=== PATIENT | female | born 1985 | race Caucasian/White ===

== ENCOUNTER 2025-03-30 09:51 | Emergency (ER) | payer OTHER, SELFPAY ==
--- NOTE | 2025-03-30 09:55 | ED.EYEPROB ---
HPI - Eye Problem General Chief complaint: Eye Problems Stated complaint: Right Eye Problem Time Seen by Provider: 03/30/25 10:04 Source: patient and RN notes reviewed Mode of arrival: ambulatory Limitations: no limitations History of Present Illness HPI Narrative: 40-year-old female presents with concern for right eyelid redness and slight swelling. She reports that started yesterday. She denies drainage from the eye. Reports it's slightly itchy. She denies pain, eye pain, vision changes. She denies injury. She is getting at the end of the week and is concerned she could have an infection. chief complaint: other (eyelid redness) Related Data Home Medications ?Medication ?Instructions ?Recorded ?Confirmed ?Last Taken ?Type citalopram 10 mg tablet mg 03/30/25 Unknown History norgestimate 0.25 mg-ethinyl tablet 03/30/25 Unknown History estradiol 0.035 mg tablet (Sprintec (28)) Allergies Allergy/AdvReac Type Severity Reaction Status Date / Time No Known Allergies Allergy Verified 03/30/25 10:03 Review of Systems Review of Systems: CONSTITUTIONAL: Denies malaise, chills, sweats, or fever. EYES: Denies visual changes. Denies eye redness, irritation, discharge. ENT: Denies rhinorrhea, congestion, sinus pain, otalgia or sore throat. SKIN: Reports redness and swelling to the right upper lower eyelid NEUROLOGIC: Denies numbness, weakness, or headache. PSYCHIATRIC: Denies anxiety or depression. All systems reviewed & are unremarkable except as noted in HPI and below PMFSH Comments At time of signature, agree with nursing past medical, surgical, social and family history. There is no relevant family history pertinent to the presenting complaint Exam Narrative: GENERAL: Well-appearing, well-nourished, and in no acute distress. HEAD: Normocephalic, atraumatic. EYES: PERRLA, sclera clear, and EOMI. No nystagmus. Bilateral conjunctivae and sclera clear. Right upper eyelid slightly erythematous and very mildly edematous, lower eyelid erythematous with your Ghosh skin noted. Left Upper and lower eyelid unremarkable, no periorbital edema noted ENT: Nares clear, turbinates pink, no rhinorrhea or epistaxis. Mucous membranes moist. TM pearly johnson with sharp light reflex bilaterally; no tragal tenderness. NECK: Supple. CHEST: No respiratory distress. Speaks in full sentences. HEART: Regular rate and rhythm. SKIN: Warm, dry, no visible rash. NEURO: Alert and oriented x3. PSYCH: Normal mood and affect Course Course Emergency Course: Patient is aware of diagnosis, understands and agrees to treatment plan. Anticipatory guidance given. Patient agrees to follow-up as directed and is aware of reasons to seek care at the emergency department. Portions of this record may have been created with voice recognition software Level of Care: Express Care Visit Vital Signs Vital signs: Reviewed. MDM - Eye Problem MDM Narrative Medical decision making narrative: Consideration of the following conditions may be warranted for the presenting problem, they are not final diagnoses: Bacterial conjunctivitis, allergic conjunctivitis, viral conjunctivitis, foreign body, blepharitis, chalazion, hordeolum, corneal abrasion, preseptal cellulitis, orbital cellulitis. No evidence of proptosis, ophthalmoplegia, vision loss, pain with eye movement. Exam findings show no acute concerns or changes; patient is non-toxic appearing and is in no distress. Patient is appropriate for outpatient treatment and follow-up. Critical Care Time Critical Care Time Critical Care Time: No Discharge Plan Discharge Clinical Impression: Dermatitis of eyelid Patient Disposition: Home Condition: Stable Instructions: Dermatitis (ED) Additional Instructions: Apply hydrocortisone cream twice daily to the eyelid and below the eyelid. Continue taking and histamine, you can add Benadryl. You can use cold washcloth to decrease swelling. Will prescribed eye drops as a precaution, however I do not see any current signs of infection. If you have any urgent concerns please go to the emergency room, if symptoms do not improve please follow-up with your primary doctor or an eye doctor Patient Language: Anguillan Prescriptions: New polymyxin B sulf-trimethoprim 10,000 unit- 1 mg/mL drops 1 drp RIGHT EYE Q3H 7 Days Qty: 10 0RF Rx Instructions: while awake; do not exceed 6 doses in 24 hours No Action norgestimate-ethinyl estradiol [Sprintec (28)] 0.25-0.035 mg tablet citalopram 10 mg tablet Follow-up/Referrals: Alejandro,Severo Larsen MD [Primary Care Provider] Time of Disposition: 10:11
[2025-03-30 09:59] VITALS: BP 120/84; PULSE 72; RESP 16; TEMP 36.4; O2SAT 100
--- OUTSIDE RECORDS SUMMARY | 2025-03-30 10:43 | XMS_ITS | Clinical Summary ---
Author Organization [facility] Address [address] [place] [address] Care Team Providers Care Sew Out Operator Name Role Phone Edison Witt MD Primary Care Provider [phone] Source Comments [facility],non-owned Affiliates and Associated Physician Practices is amultiple site organization consisting of ambulatory clinics and hospital sitesin [place], [place], [place] and [place]. This disclosure is being madepursuant to the Care Everywhere program and may not contain all information available regarding this patient. Last updated 18.[facility] Allergies No known active allergies Medications * Be aware that medications may not be up to date on this document. Alwaysverify current medications with the patient. Norgestim-Eth Estrad Triphasic (TRI-SPRINTEC PO) Ac tive Citalopram Hydrobromide (CITALOPRAM PO) Acti ve Active Problems Problem Noted Date Diagnosed Date Myopia of both eyes 04/24/2017 Overview (10/07/2017): IMO regulatory upload 04/23 Family History Medical History Relation Name Comments Diabetes Maternal Grandfather Diabetes Maternal Grandmother Hypertension Mother Diabetes Paternal Grandfather Diabetes Paternal Grandmother Relation Name Status Comments Maternal Grandfather Maternal Grandmother Mother Paternal Grandfather Paternal Grandmother Social History Tobacco Use Types Packs/Day Years Used Date Smoking Tobacco: Never Smokeless Tobacco: Never Comments Unknown Sex and Gender Information Value Date Recorded Sex Assigned at Not on file 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 Gender Identity Not on file Sexual Orientation Not on file Last Filed Vital Signs Vital Sign Reading Time Taken Comments Blood Pressure 98/68 12/27/2020 2:09 PM CDT Pulse 102 12/27/2020 2:09 PM CDT Temperature 37.2 C (98.9 F) 12/27/2020 2:09 PM CDT Respiratory Rate 17 12/27/2020 2:09 PM CDT Oxygen Saturation 98% 12/27/2020 2:09 PM CDT Inhaled Oxygen Concentration - - Weight 72.6 kg (160 lb) 12/27/2020 2:09 PM CDT Height 157.5 cm (5' 2) 12/27/2020 2:09 PM CDT Body Mass Index 29.26 12/27/2020 2:09 PM CDT Plan of Treatment Health Maintenance Due Date Last Done Comments HIV SCREENING 2001 HEPATITIS C SCREENING 03/19/2004 DTAP/TDAP/TD VACCINES (1 - Tdap) 2005 HEPATITIS B VACCINE (1 of 3 - 19+ 3-dose series) 2005 HPV VACCINE (1 - 3-dose SCDM series) 2013 DEPRESSION SCREENING 07/08/2024 COVID-19 VACCINE (1 - 2023-2 5 season) 2025 INFLUENZA VACCINE (#1) 2025 04/09/2016 ZOSTER VACCINE (1 of 2) 2036 HIB VACCINE Aged Out No longer eligi ble based on patient's age to complete this topic MENINGOCOCCAL (Group B) VACC INE SHARED DECISION-MAKING Aged Out No longer eligibl e based on patient's age to complete this topic MENINGOCOCCAL GROUPS A/C/Y/W VACCINE Aged Out No longer eligible b ased on patient's age to complete this topic PNEUMOCOCCAL VACCINE Aged Out No long er eligible based on patient's age to complete this topic Insurance [facility] Care Teams Sew Out Operator Relationship Specialty Start Date End Date Edison Witt MD PCP - General 09/12/15
--- OUTSIDE RECORDS SUMMARY | 2025-03-30 10:43 | XMS_ITS | Clinical Summary ---
Author Organization [facility] [address] Address [address] [place] [address] Care Team Providers Care Contact Center Director Name Role Phone Severo Allen MD Primary Care Provider [phone] Allergies No known active allergies Medications Sprintec, 28, 0.25-35 mg-mcg per tablet Take 1 tablet by mouth daily 1 Active citalopram hydrobromide (CITALOPRAM ORAL) Take 20 mg by mouth daily Active Wegovy 2.4 mg/0.75 mL auto-injector ADMINISTER 2.4 MG UNDER THE SKIN EVERY 7 DAYS 3 mL 2 5 Active Ubrelvy 100 mg tablet TAKE 1 TABLET BY MOUTH ONCE NEEDED FOR MIGRAINE, MAY REPEAT DOSE ONCE IN 2 HOURS IN NO RELIEF. DO NOT EXCEED 2 DOSES IN 24 HOURS 10 tablet 1 5 Active Active Problems Problem Noted Date Diagnosed Date Migraine without aura and wi th status migrainosus, not intractable 10/20/2024 Assessment & Plan (10/20/2024 3:02 PM CDT): Doing well on Ubrelvy for abortive therapy- continue Obesity (BMI 30-39.9) 10/20/2024 Assessment & Plan (10/20/2024 3:04 PM CDT): Starting BMI 31 Is down 23 lbs Continue Wegovy 2.4mg weekly- is aware she will need to hold x 5 weeks prior to TTC Routine general medical exam ination at a [facility] care [facility] 10/21/2020 Assessment & Plan (03/03/2024 12:46 PM CDT): Labs Tdap due 09/2024 MMG age 41 Colonoscopy age 46 Goal of 150 min/weekly of moderate intensity activity Limit 1 EtOH/daily Assessment & Plan (12/12/2022 1:26 PM CDT): Labs Continue 150 min/weekly moderate activity Limit 1 EtOH drink/daily Tdap due 09/2024 Assessment & Plan (10/21/2020 12:29 PM CDT): Labs today Healthy diet and activity, goal of 150 min/week of moderate intensity Current on WWE Resolved Problems Problem Noted Date Diagnosed Date Resolved Date Poison mandeep 12/07/2021 12/12/2022 Assessment & Plan (12/07/2021 3:39 PM CDT): MDP (not severe and does not need longer dose taper steroids) Fatigue 12/07/2021 12/12/2022 Assessment & Plan (12/07/2021 3:39 PM CDT): Labs Regular wake/sleep times Regular activity Immunizations Immunization Administration Dates Next Due DTP 02/11/1991, 9,1986,09/07,1986 Hep B Vaccine 02/24/1997,09/09/1996,08/05/1996 Hep B, Adolescent or Pediatric 02/24/1997,1996,08/05/1996 HiB 09/26/1988 Influenza, Trivalent, Cell Culture-based MDCK, Preservative Free, Antibiotic Free, Intramuscular 05/05/2024 Influenza, Trivalent, IM (MDV) 04/09/2016 MMR 02/11/1991,08/12/1987 OPV 02/11/1991, 9,1986,06/07 Pfizer SARS-CoV-2 Monovalent Vaccination (12+ Yrs) PURPLE 09/21/2020,08/24/2020 Td, adsorbed 05/04/1996 Tdap 09/17/2014 Varicella 08/14/2016,07/06/2016 Medical History Medical History Date Comments Migraine Family History Medical History Relation Name Comments No Known Problems Brother Valvular heart disease Father Dementia Maternal Grandmother No Known Problems Mother Heart disease Paternal Grandfather Breast cancer Paternal Grandmother Relation Name Status Comments Brother Alive Father Alive Maternal Grandfather Alive Maternal Grandmother Mother Alive Paternal Grandfather Paternal Grandmother Social History Tobacco Use Types Packs/Day Years Used Date Smoking Tobacco: Never Smokeless Tobacco: Never Tobacco Cessation:Counseling Given: Not Answered AUDIT-C Answer Date Recorded Q1: How often do you have a drink containing alc ohol? 2-3 times a week 03/03/2024 Q2: How many drinks containi ng alcohol do you have on a typical day when you are drinking? 1 or 2 03/03/2024 Q3: How often do you have si x or more drinks on one occasion? Never 03/03/2024 PHQ-2 Answer Date Recorded PHQ-2 Total Score (If total score is 3 or more points, staff should administer the PHQ-9) 0 12/12/2022 Exercise Vital Sign Answer Date Recorde d On average, how many days pe r week do you engage in moderate to strenuous exercise (like a brisk walk)? 3 days 12/12/2022 On average, how many minutes do you engage in exercise at this level? 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 Gender Identity Not on file Sexual Orientation Not on file Obstetrics History Last Filed Vital Signs Vital Sign Reading Time Taken Comments Blood Pressure 110/70 10/20/2024 2:55 PM CDT Pulse 69 10/20/2024 2:55 PM CDT Temperature - - Respiratory Rate - - Oxygen Saturation 95% 10/20/2024 2:55 PM CDT Inhaled Oxygen Concentration - - Weight 64.4 kg (142 lb) 10/20/2024 2:55 PM CDT Height 157.5 cm (5' 2) 10/20/2024 2:55 PM CDT Body Mass Index 25.97 10/20/2024 2:55 PM CDT Plan of Treatment Health Maintenance Due Date Last Done Comments Cervical Cancer Screening 1986 Hepatitis C Screening 1986 HPV Vaccines (1 - 3-dose SCDM series) 2013 Depression Screening 12/13/2023 12/12/2022 DTaP/Tdap/Td Vaccine (7 - Td or Tdap) 09/17/2024 09/17/2014, 05/04/1996, 02/11/1991, Additional history exists Regular Well Visit/Exam 18-64 03/03/2025 03/03/2024, 12/12/2022, 10/21/2020 Covid-19 Vaccine ( - 2024- season) 2025 09/21/2020, 08/24/2020 Influenza Vaccine (#1) 2025 05/05/2024, 2015 Hepatitis B Screening Completed 02/24/1997 , 02/24/1997, 09/09/1996, Additional history exists Varicella Vaccines Completed 08/14/2016, 07/06/2016 Pneumococcal vaccine <65 Aged Out No longer eligible based on patient's age to complete this topic Insurance [employer] Care Teams Contact Center Director Relationship Specialty Start Date End Date Severo Allen MD PCP - General Internal Medicine 06/20/20
== END 2025-03-30 10:16 | disposition home or self-care (01) ==
PROVIDERS: Emergency Provider Nurse Practitioner; PCP Internal Medicine
DX: H01.9 Unspecified inflammation of eyelid (principal); F41.9 Anxiety disorder, unspecified
CPT/HCPCS: 99203; 99204; G0463